=== PATIENT | female | born 1980 | race Caucasian/White ===

== ENCOUNTER 2024-03-18 15:18 | Emergency (ER) | payer OTHER ==
[~2024-03-18] VITALS: Ht 162.6 cm; Wt 81.8 kg
[2024-03-18] MEDS ORDERED: IBUP-1984 PO (18:23)
[2024-03-18 18:47] VITALS: BP 160/60; PULSE 98; RESP 18; TEMP 98.6; O2SAT 99
== END 2024-03-18 18:49 | disposition home or self-care (01) ==
LOC: ER 15:19
DX: M79.605 Pain in left leg (principal); Z79.1 Long term (current) use of non-steroidal anti-inflammatories (NSAID)
CPT/HCPCS: 99282; A6449